=== PATIENT | male | born 1965 | race Caucasian/White ===

== ENCOUNTER 2021-08-11 09:45 | Outpatient (RCR) | payer OTHER, SELFPAY ==
[2021-08-04 10:13] VITALS: BP 173/80; PULSE 76; TEMP 36.4
--- NOTE | 2021-08-04 11:40 | PCM.WC.PN ---
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 States he gets on and off cellulitis of bilateral lower ankle area every 5 to 6 months and have to go on antibiotics. States he has never had an open like this before this is the worst. Denies trauma, states he sits a lot on his job. History of osteoarthritis and takes a lot of medications for that [id number] and meloxicam. His family doctor has been using Bactroban external ointment on the area to keep it clean. States he did cultures in the past and patient has been on clindamycin and also levofloxacin currently he finished those in June and has not been on anything since then. Progress of Wound: The right posterior ankle is open with tendon visible very dry has some bruising around red blood into his skin tender to palpate the area has some pedal edema and tenderness. No cellulitis noted no odor. Subjective Subjective Patient states it bothers him but he is not having excruciating pain over it able to walk on. Objective Data Objective Data As above, will start with Aquacel extra to wound base moistened with Adaptic over top gauze dressing double layer Tubigrip to lower leg cultures were obtained. Vital Signs: Vital Signs Temp Pulse BP 97.6 F L 76 173/80 H 08/04/21 10:13 08/04/21 10:13 08/04/21 10:13 Physical Exam Const alert and oriented x3 General Appearance: cooperative Nutritional Appearance: obese HEENT normocephalic Face and Sinus: normal facial exam Eyes PERRL General Eye: normal appearance of both eyes Neck full ROM Resp normal respiratory effort Effort and Inspection: able to speak in complete sentences Cardio regular rate and regular rhythm GI Auscultation: normoactive bowel sounds Palpation: soft and no hepatosplenomegaly Back/Spine Cervical Spine: cervical ROM normal Extremity General Extremity: edema; Negative for normal exam except as noted Skin Wounds: wounds noted Wound Narrative: Right posterior ankle open wound with a tendon visible Psych mental status grossly normal Appearance: grossly normal Activity / Motor Behavior: appropriate eye contact Speech: normal speech Mood & Affect: euthymic mood Debridement Note Debridement Note Wound debrided: Right posterior ankle Laterality: Right Type of Debridement: Excisional debridement Anesthesia Used: 5% Lidocaine Gel Depth: Down to and including healthy tissue Percentage of wound debrided: 100 Instrument Used: 7mm curette Tissue Removed: Fibrin devitalized tissue Amount of bleeding with debridement: Mild Bleeding Controlled with: Compression and gauze Patient tolerated procedure: Patient tolerated procedure well Post-Debridement Measurements and Additional Note: Post-Debridement Measurements/Treatment - Nurse 1 - General Ulcer Assessment Start: 08/04/21 10:13 Freq: Status: Active Protocol: MANSOOR Activity Type Activity Date Activity User E-Sign Co-Sign Detail Recorded Client Recorded Date Recorded By Document 08/04/21 10:13 TARIQ [id number] 08/04/21 10:26 TARIQ 08/04/21 10:13 TARIQ - Today's Visit Information Type of service Initial Visit Arrival Mode Ambulatory Patient Identification Verified (Name & Yes ) Vital Signs Temperature (97.8 F-99.1 F) 97.6 F L Temperature Source Temporal Pulse Rate (60-100) 76 Pulse Location Monitor Blood Pressure (90/60-120/80) 173/80 H Blood Pressure Mean (mm Hg) 111 Source Monitor Position Sitting Blood Pressure Location Right Arm History Since Last Visit- (Skip if this is Patient's initial visit) Have you changed medications since your No last visit? Any new allergies or adverse reactions No Had a fall/change in ADL's that may No increase risk of falls Signs or symptoms of abuse and/or No neglect since last visit Have you been in the hospital since your No last visit? Has dressing in place as prescribed No Has compression in place as prescribed N/A Has offloadiing in place as prescribed N/A Experienced any changes in pain level or No management Left Footwear Regular Shoe Right Footwear Regular Shoe Pain Scale: 0-10 Numeric Is Patient Pain Free? Yes - Nurse 1 - General Ulcer Measurement Start: 08/04/21 10:13 Freq: Status: Active Protocol: Activity Type Activity Date Activity User E-Sign Co-Sign Detail Recorded Client Recorded Date Recorded By Document 08/04/21 10:13 TARIQ [id number] 08/04/21 10:26 NM 08/04/21 10:13 Wound Center Nurse 1 #1 Right Achilles -Current Size (cm) - Length 3 -Current Size (cm) - Width 3.2 -Current Size (cm) - Depth 0.2 -Total Square Cm 9.6 -Exudate Amt Small -Exudate Type Serosanguineous -Wound Margin Distinct, Outline Attached -Granulation Amt Medium (34-66%) -Granulation Quality Red -Necrosis Amt Medium (34-66%) -Necrotic Tissue Type Adherent Slough -Structure Exposed Tendon -Texture (Johanna-wound Skin Appearance) Assessed, Scarring -Moisture (Johanna-wound Skin Appearance) Assessed, Maceration -Color (Johanna-wound Skin Appearance) No Abnormality, Assessed -Temperature (Johanna-wound Skin No Abnormality Appearance) (Pt Warm) -Tenderness on Palpation (Johanna-wound No Skin Appearance) -Ulcer Cleansing Soap and Water -Foul Odor after Cleansing No -Anesthetic Used 5% Lidocaine Gel Right Calf (cm) 50 Right Ankle (cm) 26 WC - Nurse 2 - General Ulcer CM Notes Start: 08/04/21 10:13 Freq: Status: Active Protocol: Activity Type Activity Date Activity User E-Sign Co-Sign Detail Recorded Client Recorded Date Recorded By Document 08/04/21 10:45 MW [id number] 08/04/21 10:50 MW 08/04/21 10:45 Wound Center Nurse 2 #1 Right Achilles -Time 10:45 -Correct Patient Yes -Correct Side, Site, Position Yes -Correct Procedure Yes -Procedure Performed Yes -Type of Procedure Debridement -Clinical Debridement Subcutaneous -Tissue Removed Subcutaneous -Post Debridement (cm) - Length 3.5 -Post Debridement (cm) - Width 3.5 -Post Debridement (cm) - Depth 0.1 -Total Square (Post) (cm) 12.25 -Area of Debridement (cm) - Length 3.5 -Area of Debridement (cm) - Width 3.5 -Total Square (Area) (cm) 12.25 -Tunneling No -Undermining/Tunneling No -Circular Undermining No -Wound/Ulcer Outcome Not Healed -Ulcer Cleansing Rinsed/ Irrigated with Saline -Foul Odor after Cleansing No -Bioengineered Tissue No -Bleeding Controlled with Pressure -Offloading No -Treatment Response Procedure Tolerated Well -Debridement - Subq, 1st 20sq cm Yes Pain Scale: 0-10 Numeric Is Patient Pain Free? Yes WC - Nurse 3 - General Ulcer D/C NN Start: 08/04/21 10:13 Freq: Status: Active Protocol: Activity Type Activity Date Activity User E-Sign Co-Sign Detail Recorded Client Recorded Date Recorded By Document 08/04/21 10:56 NICHOLAS [id number] 08/04/21 10:57 NICHOLAS 08/04/21 10:56 Wound Care Nurse 3 #1 Right Achilles -Ulcer Cleansing Rinsed/ Irrigated with Saline -Primary Dressing Applied Aquacel Extra -Primary Dressing Covered/Secured with Dry Gauze, Secured with Tape -Aquacel Extra 1 Right -Tubular Bandage Double Layer -Size of Tubigrip Used Size F -Size F ($) 2 Pain Scale: 0-10 Numeric Is Patient Pain Free? Yes WC - Visit Discharge Discharge Condition Stable Ambulatory Status Ambulatory Transportation Private Auto Accompanied by self Assessment/Plan Assessment/Plan (1) Edema, lower extremity: CODE(S): R60.0 - Localized edema PLAN: Double layer Tubigrip (2) Nonhealing nonsurgical wound: CODE(S): T14.8XXA - Other injury of unspecified body region, initial encounter PLAN: Wash whole leg with antibacterial soap and apply Aquacel extra to wound base cover with Adaptic gauze Allison daily Follow-up in 1 week (3) Obesity: CODE(S): E66.9 - Obesity, unspecified QUALIFIERS: Obesity type: due to excess calories Obesity classification: adult class 3 (BMI >= 40) Serious obesity comorbidity presence: with serious comorbidity Body mass index: BMI 50.0-59.9 Qualified Code(s): E66.01 - Morbid (severe) obesity due to excess calories; Z68.43 - Body mass index [BMI] 50.0-59.9, adult PLAN: Continue to eat a low-carb diet and high-protein diet and exercise
[2021-08-11 09:56] VITALS: BP 151/77; PULSE 85; TEMP 36.2
--- NOTE | 2021-08-11 11:02 | PN.PCM_ITS ---
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 States he gets on and off cellulitis of bilateral lower ankle area every 5 to 6 months and have to go on antibiotics. States he has never had an open like this before this is the worst. Denies trauma, states he sits a lot on his job. History of osteoarthritis and takes a lot of medications for that [id number] and meloxicam. His family doctor has been using Bactroban external ointment on the area to keep it clean. States he did cultures in the past and patient has been on clindamycin and also levofloxacin currently he finished those in June and has not been on anything since then. Progress of Wound: The right posterior ankle is open with tendon visible beefy base no sign of infection did have positive cultures. Started on Levaquin yesterday. Did run out of his product will give him enough for 1 more week and follow-up weekly. We will try to apply for skin subs which would cover the tendon better and heal faster. We will try to get lab work on him. Subjective Subjective Patient happy with outcome so far Objective Data Objective Data Right lower ankle open wound with tendon exposed beefy's skin developing starting to cover the tendon looks good patient happy with outcome we will apply for skin substitute Vital Signs: Vital Signs Temp Pulse BP 97.1 F L 85 151/77 H 08/11/21 09:56 08/11/21 09:56 08/11/21 09:56 Lab / Micro Data Micro: Microbiology 08/04/21 10:45 Wound Abcess - Right Foot Gram Stain - Final 08/04/21 10:45 Wound Abcess - Right Foot Wound Culture - Final Turicella otitidis Staphylococcus epidermidis Staphylococcus haemolyticus 08/04/21 10:45 Wound Abcess - Right Foot Anaerobic Culture - Final No anaerobic bacteria isolated. Physical Exam Const alert and oriented x3 General Appearance: cooperative Nutritional Appearance: obese HEENT normocephalic Face and Sinus: normal facial exam Eyes PERRL General Eye: normal appearance of both eyes Neck full ROM Resp normal respiratory effort Effort and Inspection: able to speak in complete sentences Cardio regular rate and regular rhythm GI Auscultation: normoactive bowel sounds Palpation: soft and no hepatosplenomegaly Back/Spine Cervical Spine: cervical ROM normal Extremity General Extremity: edema; Negative for normal exam except as noted Skin Wounds: wounds noted Wound Narrative: Right posterior ankle open wound with a tendon visible Psych mental status grossly normal Appearance: grossly normal Activity / Motor Behavior: appropriate eye contact Speech: normal speech Mood & Affect: euthymic mood Debridement Note Debridement Note Wound debrided: Right upper ankle Type of Debridement: Excisional debridement Anesthesia Used: 5% Lidocaine Gel Depth: Down to and including healthy tissue and in the subcutaneous layer (Tendon exposed) Percentage of wound debrided: 100 Instrument Used: 5mm curette Tissue Removed: Fibrin Severity: Fat Layer Exposed Amount of bleeding with debridement: None Bleeding Controlled with: Compression and gauze Patient tolerated procedure: Patient tolerated procedure well Post-Debridement Measurements and Additional Note: Post-Debridement Measurements/Treatment - Nurse 1 - General Ulcer Assessment Start: 08/04/21 10:13 Freq: Status: Active Protocol: TARIQ.ALBIN Activity Type Activity Date Activity User E-Sign Co-Sign Detail Recorded Client Recorded Date Recorded By Document 08/04/21 10:13 AK [id number] 08/04/21 10:26 AK Document 08/11/21 09:56 KR [id number] 08/11/21 10:01 KR 08/04/21 08/11/21 10:13 09:56 - Today's Visit Information Type of service Initial Visit Follow-up Visit (Physician/[facility] ) Arrival Mode Ambulatory Ambulatory Patient Identification Verified (Name & Yes Yes ) Vital Signs Temperature (97.8 F-99.1 F) 97.6 F L 97.1 F L Temperature Source Temporal Temporal Pulse Rate (60-100) 76 85 Pulse Location Monitor Monitor Blood Pressure (90/60-120/80) 173/80 H 151/77 H Blood Pressure Mean (mm Hg) 111 101 Source Monitor Monitor Position Sitting Sitting Blood Pressure Location Right Arm Left Arm History Since Last Visit- (Skip if this is Patient's initial visit) Have you changed medications since your No No last visit? Any new allergies or adverse reactions No No Had a fall/change in ADL's that may No No increase risk of falls Signs or symptoms of abuse and/or No No neglect since last visit Have you been in the hospital since your No No last visit? Has dressing in place as prescribed No Yes Has compression in place as prescribed N/A Yes Has offloadiing in place as prescribed N/A N/A Experienced any changes in pain level or No No management Left Footwear Regular Shoe Regular Shoe Right Footwear Regular Shoe Regular Shoe Pain Scale: 0-10 Numeric Is Patient Pain Free? Yes Yes WC - Nurse 1 - General Ulcer Measurement Start: 08/04/21 10:13 Freq: Status: Active Protocol: Activity Type Activity Date Activity User E-Sign Co-Sign Detail Recorded Client Recorded Date Recorded By Document 08/04/21 10:13 AK [id number] 08/04/21 10:26 AK Document 08/11/21 09:56 KR [id number] 08/11/21 10:01 KR 08/04/21 08/11/21 10:13 09:56 Wound Center Nurse 1 #1 Right Achilles -Combined with other wound No -Current Size (cm) - Length 3 3.6 -Current Size (cm) - Width 3.2 3.5 -Current Size (cm) - Depth 0.2 0.3 -Total Square Cm 9.6 12.60 -Photo Taken No -Tunneling No -Undermining/Tunneling No -Circular Undermining No -Change in Wound Grade/Stage No -Exudate Amt Small Large -Exudate Type Serosanguineous Serosanguineous -Wound Margin Distinct, Distinct, Outline Outline Attached Attached -Granulation Amt Medium (34-66%) Medium (34-66%) -Granulation Quality Red Red -Slough/Fibrin Yes -Necrosis Amt Medium (34-66%) Medium (34-66%) -Necrotic Tissue Type Adherent Slough Adherent Slough -Structure Exposed Tendon Tendon,Fat Layer Exposed -Texture (Johanna-wound Skin Appearance) Assessed, Assessed, Scarring Scarring -Moisture (Johanna-wound Skin Appearance) Assessed, Assessed, Maceration Maceration -Color (Johanna-wound Skin Appearance) No Abnormality, No Abnormality, Assessed Assessed -Temperature (Johanna-wound Skin No Abnormality No Abnormality Appearance) (Pt Warm) (Pt Warm) -Tenderness on Palpation (Johanna-wound No No Skin Appearance) -Ulcer Cleansing Soap and Water Rinsed/ Irrigated with Saline -Foul Odor after Cleansing No No -Anesthetic Used 5% Lidocaine 5% Lidocaine Gel Gel Right Calf (cm) 50 49.5 Right Ankle (cm) 26 27.4 WC - Nurse 2 - General Ulcer CM Notes Start: 08/04/21 10:13 Freq: Status: Active Protocol: Activity Type Activity Date Activity User E-Sign Co-Sign Detail Recorded Client Recorded Date Recorded By Document 08/04/21 10:45 MW [id number] 08/04/21 10:50 MW Document 08/11/21 10:12 MW [id number] 08/11/21 10:17 MW 08/04/21 08/11/21 10:45 10:12 Wound Center Nurse 2 #1 Right Achilles -Time 10:45 10:12 -Correct Patient Yes Yes -Correct Side, Site, Position Yes Yes -Correct Procedure Yes Yes -Procedure Performed Yes Yes -Type of Procedure Debridement Debridement -Clinical Debridement Subcutaneous Subcutaneous -Tissue Removed Subcutaneous Subcutaneous -Post Debridement (cm) - Length 3.5 3.8 -Post Debridement (cm) - Width 3.5 3.8 -Post Debridement (cm) - Depth 0.1 0.2 -Total Square (Post) (cm) 12.25 14.44 -Area of Debridement (cm) - Length 3.5 3.8 -Area of Debridement (cm) - Width 3.5 3.8 -Total Square (Area) (cm) 12.25 14.44 -Tunneling No No -Undermining/Tunneling No No -Circular Undermining No No -Wound/Ulcer Outcome Not Healed Not Healed -Ulcer Cleansing Rinsed/ Rinsed/ Irrigated with Irrigated with Saline Saline -Foul Odor after Cleansing No No -Bioengineered Tissue No No -Bleeding Controlled with Pressure Pressure -Offloading No No -Treatment Response Procedure Procedure Tolerated Well Tolerated Well -Debridement - Subq, 1st 20sq cm Yes Yes Pain Scale: 0-10 Numeric Is Patient Pain Free? Yes Yes - Nurse 3 - General Ulcer D/C NN Start: 08/04/21 10:13 Freq: Status: Active Protocol: Activity Type Activity Date Activity User E-Sign Co-Sign Detail Recorded Client Recorded Date Recorded By Document 08/04/21 10:56 KR [id number] 08/04/21 10:57 KR 08/04/21 10:56 Wound Care Nurse 3 #1 Right Achilles -Ulcer Cleansing Rinsed/ Irrigated with Saline -Primary Dressing Applied Aquacel Extra -Primary Dressing Covered/Secured with Dry Gauze, Secured with Tape -Aquacel Extra 1 Right -Tubular Bandage Double Layer -Size of Tubigrip Used Size F -Size F ($) 2 Pain Scale: 0-10 Numeric Is Patient Pain Free? 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: CODE(S): L97.302 - Non-pressure chronic ulcer of unspecified ankle with fat layer exposed PLAN: Wash right leg with antibacterial soap apply Aquacel extra to wound base cover with Adaptic gauze and Allison double layer Tubigrip Patient started on Levaquin 500 mg 1 a day for his bacteria growing Follow-up 1 week (2) Obesity: CODE(S): E66.9 - Obesity, unspecified QUALIFIERS: Obesity type: due to excess calories Obesity classification: adult class 3 (BMI >= 40) Serious obesity comorbidity presence: with serious comorbidity Body mass index: BMI 50.0-59.9 Qualified Code(s): E66.01 - Morbid (severe) obesity due to excess calories; Z68.43 - Body mass index [BMI] 50.0-59.9, adult PLAN: We will check labs for diabetes (3) Edema, lower extremity: CODE(S): R60.0 - Localized edema (4) Nonhealing nonsurgical wound: CODE(S): T14.8XXA - Other injury of unspecified body region, initial encounter
== END 2021-08-12 23:59 ==
LOC: WC 09:45
PROVIDERS: PCP Family Medicine; Visit Provider Nurse Practitioner
DX: L97.312 Non-pressure chronic ulcer of right ankle with fat layer exposed (principal); R60.0 Localized edema; M19.90 Unspecified osteoarthritis, unspecified site; E66.01 Morbid (severe) obesity due to excess calories; Z68.43 Body mass index [BMI] 50.0-59.9, adult; Z79.1 Long term (current) use of non-steroidal anti-inflammatories (NSAID)
CPT/HCPCS: 11042; 87070; 87075; 87077; 87186; 87205; 99203; G0463

== ENCOUNTER 2021-09-08 10:15 | Outpatient (RCR) | payer OTHER, SELFPAY ==
[2021-08-13 00:37] VITALS: BP 151/77; PULSE 85; TEMP 36.2
[2021-08-18 10:24] VITALS: BP 153/91; PULSE 73; TEMP 36.1
--- NOTE | 2021-08-18 11:24 | PN.PCM_ITS ---
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 States he gets on and off cellulitis of bilateral lower ankle area every 5 to 6 months and have to go on antibiotics. States he has never had an open like this before this is the worst. Denies trauma, states he sits a lot on his job. History of osteoarthritis and takes a lot of medications for that [id number] and meloxicam. His family doctor has been using Bactroban external ointment on the area to keep it clean. States he did cultures in the past and patient has been on clindamycin and also levofloxacin currently he finished those in June and has not been on anything since then. Progress of Wound: Right posterior ankle still open tendons are almost covered getting islands of new skin developing Subjective Subjective Patient is pleased with his improvement Objective Data Objective Data No sign of infection there is areas of new cell buds growing over the tendon growth The area is becoming smaller Vital Signs: Vital Signs Temp Pulse BP 96.9 F L 73 153/91 H 08/18/21 10:24 08/18/21 10:24 08/18/21 10:24 Lab / Micro Data Result Diagrams: 08/18/21 11:04 Physical Exam Const alert and oriented x3 General Appearance: cooperative Nutritional Appearance: obese HEENT normocephalic Face and Sinus: normal facial exam Eyes PERRL General Eye: normal appearance of both eyes Neck full ROM Resp normal respiratory effort Effort and Inspection: able to speak in complete sentences Cardio regular rate and regular rhythm GI Auscultation: normoactive bowel sounds Palpation: soft and no hepatosplenomegaly Back/Spine Cervical Spine: cervical ROM normal Extremity General Extremity: edema; Negative for normal exam except as noted Skin Wounds: wounds noted Wound Narrative: Right posterior ankle open wound with a tendon visible Psych mental status grossly normal Appearance: grossly normal Activity / Motor Behavior: appropriate eye contact Speech: normal speech Mood & Affect: euthymic mood Debridement Note Debridement Note Wound debrided: Right posterior ankle Type of Debridement: Excisional debridement Anesthesia Used: 5% Lidocaine Gel Depth: Down to and including healthy tissue Percentage of wound debrided: 100 Instrument Used: 5mm curette Tissue Removed: Fibrin Severity: Limited To Skin Breakdown Amount of bleeding with debridement: Mild Bleeding Controlled with: Pressure Patient tolerated procedure: Patient tolerated procedure well Post-Debridement Measurements and Additional Note: Post-Debridement Measurements/Treatment - Nurse 1 - General Ulcer Assessment Start: 08/18/21 10:23 Freq: Status: Active Protocol: [facility] Activity Type Activity Date Activity User E-Sign Co-Sign Detail Recorded Client Recorded Date Recorded By Document 08/18/21 10:24 TARIQ [id number] 08/18/21 10:31 TARIQ 08/18/21 10:24 WC - Today's Visit Information Type of service Follow-up Visit (Physician/DIRECTOR INSTRUCTIONAL [employer]ERIAL ) Arrival Mode Ambulatory Patient Identification Verified (Name & Yes ) Patient Requires Transmission-Based No Precautions Safety Precautions NA Vital Signs Temperature (97.8 F-99.1 F) 96.9 F L Temperature Source Oral Pulse Rate (60-100) 73 Pulse Location Monitor Blood Pressure (90/60-120/80) 153/91 H Blood Pressure Mean (mm Hg) 111 Source Monitor History Since Last Visit- (Skip if this is Patient's initial visit) Have you changed medications since your No last visit? Any new allergies or adverse reactions No Had a fall/change in ADL's that may No increase risk of falls Signs or symptoms of abuse and/or No neglect since last visit Have you been in the hospital since your No last visit? Has dressing in place as prescribed Yes Has compression in place as prescribed Yes Has offloadiing in place as prescribed N/A Experienced any changes in pain level or No management Left Footwear Regular Shoe Right Footwear Regular Shoe TARIQ - Nurse 1 - General Ulcer Measurement Start: 08/18/21 10:23 Freq: Status: Active Protocol: Activity Type Activity Date Activity User E-Sign Co-Sign Detail Recorded Client Recorded Date Recorded By Document 08/18/21 10:24 TARIQ [id number] 08/18/21 10:31 TARIQ 08/18/21 10:24 Wound Center Nurse 1 #1 Right Achilles -Combined with other wound No -Current Size (cm) - Length 3.8 -Current Size (cm) - Width 3.4 -Current Size (cm) - Depth 0.2 -Total Square Cm 12.92 -Photo Taken No -Epithelialization None Present -Tunneling No -Undermining/Tunneling No -Circular Undermining No -Change in Wound Grade/Stage No -Exudate Amt Medium -Exudate Type Serosanguineous -Wound Margin Distinct, Outline Attached -Granulation Amt Large (67-100%) -Granulation Quality [place],Red -Slough/Fibrin No -Necrosis Amt Medium (34-66%) -Necrotic Tissue Type Adherent Slough -Structure Exposed N/A -Texture (Johanna-wound Skin Appearance) No Abnormality, Assessed -Moisture (Johanna-wound Skin Appearance) No Abnormality, Assessed -Color (Johanna-wound Skin Appearance) No Abnormality, Assessed -Temperature (Johanna-wound Skin No Abnormality Appearance) (Pt Warm) -Tenderness on Palpation (Johanna-wound No Skin Appearance) -Ulcer Cleansing Rinsed/ Irrigated with Saline -Foul Odor after Cleansing No -Anesthetic Used 5% Lidocaine Gel Lower Limb Edema Present No Right Calf (cm) 46.2 Right Ankle (cm) 25.5 WC - Nurse 2 - General Ulcer CM Notes Start: 08/18/21 10:23 Freq: Status: Active Protocol: Activity Type Activity Date Activity User E-Sign Co-Sign Detail Recorded Client Recorded Date Recorded By Document 08/18/21 10:36 MW [id number] 08/18/21 10:37 MW 08/18/21 10:36 Wound Center Nurse 2 #1 Right Achilles -Time 10:36 -Correct Patient Yes -Correct Side, Site, Position Yes -Correct Procedure Yes -Procedure Performed Yes -Type of Procedure Debridement -Clinical Debridement Subcutaneous -Tissue Removed Subcutaneous -Post Debridement (cm) - Length 4.0 -Post Debridement (cm) - Width 3.2 -Post Debridement (cm) - Depth 0.2 -Total Square (Post) (cm) 12.80 -Area of Debridement (cm) - Length 4.0 -Area of Debridement (cm) - Width 3.2 -Total Square (Area) (cm) 12.80 -Tunneling No -Undermining/Tunneling No -Circular Undermining No -Wound/Ulcer Outcome Not Healed -Ulcer Cleansing Rinsed/ Irrigated with Saline -Foul Odor after Cleansing No -Bioengineered Tissue No -Bleeding Controlled with Pressure -Offloading No -Treatment Response Procedure Tolerated Well -Debridement - Subq, 1st 20sq cm Yes Pain Scale: 0-10 Numeric Is Patient Pain Free? Yes WC - Nurse 3 - General Ulcer D/C NN Start: 08/18/21 10:23 Freq: Status: Active Protocol: Activity Type Activity Date Activity User E-Sign Co-Sign Detail Recorded Client Recorded Date Recorded By Document 08/18/21 10:48 TARIQ [id number] 08/18/21 10:49 TARIQ 08/18/21 10:48 Wound Care Nurse 3 #1 Right Achilles -Ulcer Cleansing Rinsed/ Irrigated with Saline -Foul Odor after Cleansing No -Negative Pressure Wound Therapy N/A -Primary Dressing Applied Fibracol Plus 4x4 -Primary Dressing Covered/Secured with Dry Gauze, Secured with Tape -Fibracol Plus 4x4 2 WC - Visit Discharge Discharge Condition Stable Ambulatory Status Ambulatory Transportation Private Auto Medication Reconcilliation completed & No provided to patient/care provider Clinical Summary of Care Provided Yes Assessment/Plan Assessment/Plan (1) 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 Apply Fibracol to wound base moistened cover with Adaptic gauze and dressing every day We will apply for skin substitute to cover tendon (2) Obesity: CODE(S): E66.9 - Obesity, unspecified QUALIFIERS: Obesity type: due to excess calories Obesity classification: adult class 3 (BMI >= 40) Serious obesity comorbidity presence: with serious comorbidity Body mass index: BMI 50.0-59.9 Qualified Code(s): E66.01 - Morbid (severe) obesity due to excess calories; Z68.43 - Body mass index [BMI] 50.0-59.9, adult (3) Edema, lower extremity: CODE(S): R60.0 - Localized edema PLAN: Continue wearing double layer Tubigrip to the area (4) Nonhealing nonsurgical wound: CODE(S): T14.8XXA - Other injury of unspecified body region, initial encounter
[2021-08-18 12:02] LABS: Absolute Lymphocyte Count 2.34 X10^3/uL (0.83-4.51); Absolute Neutrophil Count 3.4 X10^3/uL (2.0-7.7); Basophil# 0.06 X10^3/uL; Basophil% 0.9 % (0-1); Eosinophil# 0.12 X10^3/uL; Eosinophils% 1.8 % (0-5); Hematocrit 43.6 % (40-54); Hemoglobin 14.4 g/dL (13.0-16.5); Lymphocyte # 2.34 X10^3/ul (0.83-4.51); Lymphocyte % 35.1 % (19-41); Mean Corpuscular Hgb 29.4 pg (27.0-32.0); Monocyte# 0.74 X10^3/uL; Monocyte% 11.1 % (0-10); NRBC Flagged by Analyzer 0 % (0-5); Neutrophil # 3.38 X10^3/uL (2.7-7.7); Neutrophil % 50.7 % (47-70); Platelet Count 264 K/mm3 (150-450); RBC Distribution Width CV 12.9 % (11.6-14.6); RBC Distribution Width SD 42.2 fl (35.1-43.9); White Blood Count 6.7 K/mm3 (4.4-11.0)
[2021-08-18 12:27] LABS: Hemoglobin A1c 5.5 % (3.8-5.6)
[2021-08-18 12:38] LABS: Prealbumin 22.9 mg/dL (20.0-40.0)
[2021-08-25 10:36] VITALS: BP 148/68; PULSE 82; TEMP 36
--- NOTE | 2021-08-25 11:20 | PCM.WC.PN ---
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 States he gets on and off cellulitis of bilateral lower ankle area every 5 to 6 months and have to go on antibiotics. States he has never had an open like this before this is the worst. Denies trauma, states he sits a lot on his job. History of osteoarthritis and takes a lot of medications for that [id number] and meloxicam. His family doctor has been using Bactroban external ointment on the area to keep it clean. States he did cultures in the past and patient has been on clindamycin and also levofloxacin currently he finished those in June and has not been on anything since then. Progress of Wound: Right posterior ankle still open tendons are almost covered getting islands of new skin developing. Continues to improve. The hemoglobin A1c was within normal limits and his prealbumin was within normal limits. Patient does not skin sub. We will continue using Fibracol that we used for the last week seems to be working really well and he will follow up in a couple weeks Subjective Subjective Patient is happy with closure Objective Data Objective Data Wound continues to fill in nicely with new skin cells and covering the tendons well very little bit showing. Patient tolerating dressing changes well. No sign of infection or odor Vital Signs: Vital Signs Temp Pulse BP 96.8 F L 82 148/68 H 08/25/21 10:36 08/25/21 10:36 08/25/21 10:36 Lab / Micro Data Attestation: I reviewed the patient's lab results. Result Diagrams: 08/18/21 11:04 Physical Exam Const alert and oriented x3 General Appearance: cooperative Nutritional Appearance: obese HEENT normocephalic Face and Sinus: normal facial exam Eyes PERRL General Eye: normal appearance of both eyes Neck full ROM Resp normal respiratory effort Effort and Inspection: able to speak in complete sentences Cardio regular rate and regular rhythm GI Auscultation: normoactive bowel sounds Palpation: soft and no hepatosplenomegaly Back/Spine Cervical Spine: cervical ROM normal Extremity General Extremity: edema; Negative for normal exam except as noted Skin Wounds: wounds noted Wound Narrative: Right posterior ankle open wound with a tendon visible Psych mental status grossly normal Appearance: grossly normal Activity / Motor Behavior: appropriate eye contact Speech: normal speech Mood & Affect: euthymic mood Debridement Note Debridement Note Wound debrided: Right posterior ankle Type of Debridement: Excisional debridement Anesthesia Used: 5% Lidocaine Gel Depth: Down to and including healthy tissue and in the subcutaneous layer Percentage of wound debrided: 100 Instrument Used: 5mm curette Tissue Removed: Fibrin and some devitalized tissue Severity: Fat Layer Exposed Amount of bleeding with debridement: Mild Bleeding Controlled with: Pressure Patient tolerated procedure: Patient tolerated procedure well Post-Debridement Measurements and Additional Note: Post-Debridement Measurements/Treatment - Nurse 1 - General Ulcer Assessment Start: 08/18/21 10:23 Freq: Status: Active Protocol: [employer] Activity Type Activity Date Activity User E-Sign Co-Sign Detail Recorded Client Recorded Date Recorded By Document 08/18/21 10:24 AK [id number] 08/18/21 10:31 AK Document 08/25/21 10:36 NICHOLAS [id number] 08/25/21 10:39 NICHOLAS 08/18/21 08/25/21 10:24 10:36 - Today's Visit Information Type of service Follow-up Visit Follow-up Visit (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/LINING SEWER (Physician/LINING SEWER ) ) Arrival Mode Ambulatory Ambulatory Patient Identification Verified (Name & Yes Yes ) Patient Requires Transmission-Based No Precautions Safety Precautions NA Vital Signs Temperature (97.8 F-99.1 F) 96.9 F L 96.8 F L Temperature Source Oral Temporal Pulse Rate (60-100) 73 82 Pulse Location Monitor Monitor Blood Pressure (90/60-120/80) 153/91 H 148/68 H Blood Pressure Mean (mm Hg) 111 94 Source Monitor Monitor Position Sitting Blood Pressure Location Left Arm History Since Last Visit- (Skip if this is Patient's initial visit) Have you changed medications since your No No last visit? Any new allergies or adverse reactions No No Had a fall/change in ADL's that may No increase risk of falls Signs or symptoms of abuse and/or No No neglect since last visit Have you been in the hospital since your No No last visit? Has dressing in place as prescribed Yes Yes Has compression in place as prescribed Yes Yes Has offloadiing in place as prescribed N/A N/A Experienced any changes in pain level or No No management Left Footwear Regular Shoe Regular Shoe Right Footwear Regular Shoe Regular Shoe Pain Scale: 0-10 Numeric Is Patient Pain Free? Yes WC - Nurse 1 - General Ulcer Measurement Start: 08/18/21 10:23 Freq: Status: Active Protocol: Activity Type Activity Date Activity User E-Sign Co-Sign Detail Recorded Client Recorded Date Recorded By Document 08/18/21 10:24 AK [id number] 08/18/21 10:31 AK Document 08/25/21 10:36 KR [id number] 08/25/21 10:39 KR 08/18/21 08/25/21 10:24 10:36 Wound Center Nurse 1 #1 Right Achilles -Combined with other wound No -Current Size (cm) - Length 3.8 3.5 -Current Size (cm) - Width 3.4 3.5 -Current Size (cm) - Depth 0.2 0.2 -Total Square Cm 12.92 12.25 -Photo Taken No -Epithelialization None Present -Tunneling No -Undermining/Tunneling No -Circular Undermining No -Change in Wound Grade/Stage No -Exudate Amt Medium Medium -Exudate Type Serosanguineous Serosanguineous -Wound Margin Distinct, Distinct, Outline Outline Attached Attached -Granulation Amt Large (67-100%) Large (67-100%) -Granulation Quality [place],Red Hyper- granulation -Slough/Fibrin No -Necrosis Amt Medium (34-66%) Large (67-100%) -Necrotic Tissue Type Adherent Slough Adherent Slough -Structure Exposed N/A -Texture (Johanna-wound Skin Appearance) No Abnormality, Assessed, Assessed Scarring -Moisture (Johanna-wound Skin Appearance) No Abnormality, No Abnormality, Assessed Assessed -Color (Johanna-wound Skin Appearance) No Abnormality, No Abnormality, Assessed Assessed -Temperature (Johanna-wound Skin No Abnormality No Abnormality Appearance) (Pt Warm) (Pt Warm) -Tenderness on Palpation (Johanna-wound No No Skin Appearance) -Ulcer Cleansing Rinsed/ Rinsed/ Irrigated with Irrigated with Saline Saline -Foul Odor after Cleansing No No -Anesthetic Used 5% Lidocaine 4% Lidocaine Gel Solution Lower Limb Edema Present No Right Calf (cm) 46.2 Right Ankle (cm) 25.5 WC - Nurse 2 - General Ulcer CM Notes Start: 08/18/21 10:23 Freq: Status: Active Protocol: Activity Type Activity Date Activity User E-Sign Co-Sign Detail Recorded Client Recorded Date Recorded By Document 08/18/21 10:36 MW [id number] 08/18/21 10:37 MW Document 08/25/21 10:43 MW [id number] 08/25/21 10:45 MW 08/18/21 08/25/21 10:36 10:43 Wound Center Nurse 2 #1 Right Achilles -Time 10:36 10:44 -Correct Patient Yes Yes -Correct Side, Site, Position Yes Yes -Correct Procedure Yes Yes -Procedure Performed Yes Yes -Type of Procedure Debridement Debridement -Clinical Debridement Subcutaneous Subcutaneous -Tissue Removed Subcutaneous Subcutaneous -Post Debridement (cm) - Length 4.0 4.0 -Post Debridement (cm) - Width 3.2 3.5 -Post Debridement (cm) - Depth 0.2 0.2 -Total Square (Post) (cm) 12.80 14.00 -Area of Debridement (cm) - Length 4.0 4.0 -Area of Debridement (cm) - Width 3.2 3.5 -Total Square (Area) (cm) 12.80 14.00 -Tunneling No No -Undermining/Tunneling No No -Circular Undermining No No -Wound/Ulcer Outcome Not Healed Not Healed -Ulcer Cleansing Rinsed/ Rinsed/ Irrigated with Irrigated with Saline Saline -Foul Odor after Cleansing No No -Bioengineered Tissue No No -Bleeding Controlled with Pressure Pressure -Offloading No No -Treatment Response Procedure Procedure Tolerated Well Tolerated Well -Debridement - Subq, 1st 20sq cm Yes Yes Pain Scale: 0-10 Numeric Is Patient Pain Free? Yes WC - Nurse 3 - General Ulcer D/C NN Start: 08/18/21 10:23 Freq: Status: Active Protocol: Activity Type Activity Date Activity User E-Sign Co-Sign Detail Recorded Client Recorded Date Recorded By Document 08/18/21 10:48 AK [id number] 08/18/21 10:49 AK 08/18/21 10:48 Wound Care Nurse 3 -Ulcer Cleansing Rinsed/ Irrigated with Saline -Foul Odor after Cleansing No -Negative Pressure Wound Therapy N/A -Primary Dressing Applied Fibracol Plus 4x4 -Primary Dressing Covered/Secured with Dry Gauze, Secured with Tape -Fibracol Plus 4x4 2 WC - Visit Discharge Discharge Condition Stable Ambulatory Status Ambulatory Transportation Private Auto Medication Reconcilliation completed & No provided to patient/care provider Clinical Summary of Care Provided Yes Assessment/Plan Assessment/Plan (1) 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 Apply Fibracol to wound base moistened cover with Adaptic gauze and dressing every day We will apply for skin substitute to cover tendon follow-up 2 weeks (2) Obesity: CODE(S): E66.9 - Obesity, unspecified QUALIFIERS: Obesity type: due to excess calories Obesity classification: adult class 3 (BMI >= 40) Serious obesity comorbidity presence: with serious comorbidity Body mass index: BMI 50.0-59.9 Qualified Code(s): E66.01 - Morbid (severe) obesity due to excess calories; Z68.43 - Body mass index [BMI] 50.0-59.9, adult (3) Edema, lower extremity: CODE(S): R60.0 - Localized edema PLAN: Continue wearing double layer Tubigrip to the area (4) Nonhealing nonsurgical wound: CODE(S): T14.8XXA - Other injury of unspecified body region, initial encounter
[2021-09-08 10:23] VITALS: BP 161/97; PULSE 76; RESP 16; TEMP 36
--- NOTE | 2021-09-08 12:11 | PN.PCM_ITS ---
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 States he gets on and off cellulitis of bilateral lower ankle area every 5 to 6 months and have to go on antibiotics. States he has never had an open like this before this is the worst. Denies trauma, states he sits a lot on his job. History of osteoarthritis and takes a lot of medications for that [id number] and meloxicam. His family doctor has been using Bactroban external ointment on the area to keep it clean. States he did cultures in the past and patient has been on clindamycin and also levofloxacin currently he finished those in June and has not been on anything since then. Progress of Wound: Right posterior ankle still open tendons are almost covered getting islands of new skin developing. Continues to improve. The hemoglobin A1c was within normal limits and his prealbumin was within normal limits. Patient does not skin sub. We will continue using Fibracol that we used for the last week seems to be working really well and he will follow up in a couple weeks Developing some hyper granulation and will hit it with some nitro sticks this week. Subjective Subjective Patient is happy with care Objective Data Objective Data Again some hyper granulation but the tendons are getting covered we will hit it with some nitro sticks and then continue the next day with his Fibracol seems to be healing well Vital Signs: Vital Signs Temp Pulse Resp BP 96.8 F L 76 16 161/97 H 09/08/21 10:23 09/08/21 10:23 09/08/21 10:23 09/08/21 10:23 Lab / Micro Data Attestation: I reviewed the patient's lab results. Result Diagrams: 08/18/21 11:04 Physical Exam Const alert and oriented x3 General Appearance: cooperative Nutritional Appearance: obese HEENT normocephalic Face and Sinus: normal facial exam Eyes PERRL General Eye: normal appearance of both eyes Neck full ROM Resp normal respiratory effort Effort and Inspection: able to speak in complete sentences Cardio regular rate and regular rhythm GI Auscultation: normoactive bowel sounds Palpation: soft and no hepatosplenomegaly Back/Spine Cervical Spine: cervical ROM normal Extremity General Extremity: edema; Negative for normal exam except as noted Skin Wounds: wounds noted Wound Narrative: Right posterior ankle open wound with a tendon visible Psych mental status grossly normal Appearance: grossly normal Activity / Motor Behavior: appropriate eye contact Speech: normal speech Mood & Affect: euthymic mood Debridement Note Debridement Note Wound debrided: Right upper heel wound or ulcer nonpressure Laterality: Right Type of Debridement: Excisional debridement Anesthesia Used: 5% Lidocaine Gel Depth: in the subcutaneous layer Percentage of wound debrided: 100 Instrument Used: 5mm curette and - (Nippers) Tissue Removed: Devitalized tissue and fibrin Severity: Fat Layer Exposed Amount of bleeding with debridement: Mild Bleeding Controlled with: Compression and gauze and Silver Nitrate Patient tolerated procedure: Patient tolerated procedure well Post-Debridement Measurements and Additional Note: Post-Debridement Measurements/Treatment - Nurse 1 - General Ulcer Assessment Start: 08/18/21 10:23 Freq: Status: Active Protocol: [email or web address].ALBIN Activity Type Activity Date Activity User E-Sign Co-Sign Detail Recorded Client Recorded Date Recorded By Document 08/18/21 10:24 AK [id number] 08/18/21 10:31 AK Document 08/25/21 10:36 KR [id number] 08/25/21 10:39 KR Document 09/08/21 10:23 ML [id number] 09/08/21 10:29 ML 08/18/21 08/25/21 09/08/21 10:24 10:36 10:23 - Today's Visit Information Type of service Follow-up Visit Follow-up Visit Follow-up Visit (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 ) ) ) Arrival Mode Ambulatory Ambulatory Ambulatory Transfer Assistance None Patient Identification Verified (Name & Yes Yes Yes ) Patient Requires Transmission-Based No No Precautions Safety Precautions NA NA Vital Signs Temperature (97.8 F-99.1 F) 96.9 F L 96.8 F L 96.8 F L Temperature Source Oral Temporal Temporal Pulse Rate (60-100) 73 82 76 Pulse Location Monitor Monitor Monitor Respiratory Rate (12-18) 16 Respiratory rate source Observation Blood Pressure (90/60-120/80) 153/91 H 148/68 H 161/97 H Blood Pressure Mean (mm Hg) 111 94 118 Source Monitor Monitor Monitor Position Sitting Sitting Blood Pressure Location Left Arm Left Arm History Since Last Visit- (Skip if this is Patient's initial visit) Have you changed medications since your No No No last visit? Any new allergies or adverse reactions No No No Had a fall/change in ADL's that may No No increase risk of falls Signs or symptoms of abuse and/or No No No neglect since last visit Have you been in the hospital since your No No No last visit? Has dressing in place as prescribed Yes Yes Yes Has compression in place as prescribed Yes Yes Yes Has offloadiing in place as prescribed N/A N/A N/A Experienced any changes in pain level or No No No management Left Footwear Regular Shoe Regular Shoe Regular Shoe Right Footwear Regular Shoe Regular Shoe Regular Shoe Pain Scale: 0-10 Numeric Is Patient Pain Free? Yes Yes WC - Nurse 1 - General Ulcer Measurement Start: 08/18/21 10:23 Freq: Status: Active Protocol: Activity Type Activity Date Activity User E-Sign Co-Sign Detail Recorded Client Recorded Date Recorded By Document 08/18/21 10:24 AK [id number] 08/18/21 10:31 AK Document 08/25/21 10:36 KR [id number] 08/25/21 10:39 KR Document 09/08/21 10:23 ML [id number] 09/08/21 10:29 ML 08/18/21 08/25/21 09/08/21 10:24 10:36 10:23 Wound Center Nurse 1 #1 Right Achilles -Combined with other wound No -Current Size (cm) - Length 3.8 3.5 4.5 -Current Size (cm) - Width 3.4 3.5 3 -Current Size (cm) - Depth 0.2 0.2 0.3 -Total Square Cm 12.92 12.25 13.5 -Photo Taken No -Epithelialization None Present Medium 34-66% -Tunneling No -Undermining/Tunneling No -Circular Undermining No -Change in Wound Grade/Stage No -Exudate Amt Medium Medium Medium -Exudate Type Serosanguineous Serosanguineous Serosanguineous -Wound Margin Distinct, Distinct, Distinct, Outline Outline Outline Attached Attached Attached -Granulation Amt Large (67-100%) Large (67-100%) Medium (34-66%) -Granulation Quality [place],Red Hyper- granulation -Slough/Fibrin No Yes -Necrosis Amt Medium (34-66%) Large (67-100%) Medium (34-66%) -Necrotic Tissue Type Adherent Slough Adherent Slough Adherent Slough -Structure Exposed N/A -Texture (Johanna-wound Skin Appearance) No Abnormality, Assessed, Assessed Assessed Scarring -Moisture (Johanna-wound Skin Appearance) No Abnormality, No Abnormality, Assessed Assessed Assessed -Color (Johanna-wound Skin Appearance) No Abnormality, No Abnormality, Assessed Assessed Assessed -Temperature (Johanna-wound Skin No Abnormality No Abnormality No Abnormality Appearance) (Pt Warm) (Pt Warm) (Pt Warm) -Tenderness on Palpation (Johanna-wound No No Skin Appearance) -Ulcer Cleansing Rinsed/ Rinsed/ Soap and Water Irrigated with Irrigated with Saline Saline -Foul Odor after Cleansing No No No -Anesthetic Used 5% Lidocaine 4% Lidocaine 4% Lidocaine Gel Solution Solution Lower Limb Edema Present No Right Calf (cm) 46.2 Right Ankle (cm) 25.5 WC - Nurse 2 - General Ulcer CM Notes Start: 08/18/21 10:23 Freq: Status: Active Protocol: Activity Type Activity Date Activity User E-Sign Co-Sign Detail Recorded Client Recorded Date Recorded By Document 08/18/21 10:36 MW [id number] 08/18/21 10:37 MW Document 08/25/21 10:43 MW [id number] 08/25/21 10:45 MW Document 09/08/21 10:41 MW [id number] 09/08/21 10:46 MW 08/18/21 08/25/21 09/08/21 10:36 10:43 10:41 Wound Center Nurse 2 #1 Right Achilles -Time 10:36 10:44 10:42 -Correct Patient Yes Yes Yes -Correct Side, Site, Position Yes Yes Yes -Correct Procedure Yes Yes Yes -Procedure Performed Yes Yes Yes -Type of Procedure Debridement Debridement Debridement -Clinical Debridement Subcutaneous Subcutaneous Subcutaneous -Tissue Removed Subcutaneous Subcutaneous Subcutaneous -Post Debridement (cm) - Length 4.0 4.0 3.8 -Post Debridement (cm) - Width 3.2 3.5 4.0 -Post Debridement (cm) - Depth 0.2 0.2 0.1 -Total Square (Post) (cm) 12.80 14.00 15.20 -Area of Debridement (cm) - Length 4.0 4.0 3.8 -Area of Debridement (cm) - Width 3.2 3.5 4.0 -Total Square (Area) (cm) 12.80 14.00 15.20 -Tunneling No No No -Undermining/Tunneling No No No -Circular Undermining No No No -Wound/Ulcer Outcome Not Healed Not Healed Not Healed -Ulcer Cleansing Rinsed/ Rinsed/ Rinsed/ Irrigated with Irrigated with Irrigated with Saline Saline Saline -Foul Odor after Cleansing No No No -Bioengineered Tissue No No No -Bleeding Controlled with Pressure Pressure Pressure -Offloading No No No -Treatment Response Procedure Procedure Procedure Tolerated Well Tolerated Well Tolerated Well -Debridement - Subq, 1st 20sq cm Yes Yes Yes Pain Scale: 0-10 Numeric Is Patient Pain Free? Yes Yes - Nurse 3 - General Ulcer D/C NN Start: 08/18/21 10:23 Freq: Status: Active Protocol: Activity Type Activity Date Activity User E-Sign Co-Sign Detail Recorded Client Recorded Date Recorded By Document 08/18/21 10:48 AK [id number] 08/18/21 10:49 AK Document 09/08/21 10:52 KR [id number] 09/08/21 10:53 KR 08/18/21 09/08/21 10:48 10:52 Wound Care Nurse 3 #1 Right Achilles -Ulcer Cleansing Rinsed/ Rinsed/ Irrigated with Irrigated with Saline Saline -Foul Odor after Cleansing No -Negative Pressure Wound Therapy N/A -Primary Dressing Applied Fibracol Plus Fibracol Plus 4x4 4x4,NonAdherent Contact Layer -Primary Dressing Covered/Secured with Dry Gauze, Dry Gauze & Secured with Roll Gauze, Tape Secured with Tape -Fibracol Plus 4x4 2 2 Pain Scale: 0-10 Numeric Is Patient Pain Free? 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 Apply Fibracol to wound base moistened cover with Adaptic gauze and dressing every day We will apply for skin substitute to cover tendon follow-up 2 weeks (2) Obesity: CODE(S): E66.9 - Obesity, unspecified QUALIFIERS: Obesity type: due to excess calories Obesity classification: adult class 3 (BMI >= 40) Serious obesity comorbidity presence: with serious comorbidity Body mass index: BMI 50.0-59.9 Qualified Code(s): E66.01 - Morbid (severe) obesity due to excess calories; Z68.43 - Body mass ind ex [BMI] 50.0-59.9, adult (3) Edema, lower extremity: CODE(S): R60.0 - Localized edema PLAN: Continue wearing double layer Tubigrip to the area (4) Nonhealing nonsurgical wound: CODE(S): T14.8XXA - Other injury of unspecified body region, initial encounter
== END 2021-09-12 23:59 ==
LOC: WC 10:15
PROVIDERS: PCP Family Medicine; Visit Provider Nurse Practitioner
DX: L97.312 Non-pressure chronic ulcer of right ankle with fat layer exposed (principal); R60.0 Localized edema; M19.90 Unspecified osteoarthritis, unspecified site; E66.01 Morbid (severe) obesity due to excess calories; Z68.43 Body mass index [BMI] 50.0-59.9, adult; Z79.1 Long term (current) use of non-steroidal anti-inflammatories (NSAID); Z79.899 Other long term (current) drug therapy
CPT/HCPCS: 11042; 36415; 83036; 84134; 85025

== ENCOUNTER 2021-09-29 10:15 | Outpatient (RCR) | payer OTHER, SELFPAY ==
[2021-09-13 00:28] VITALS: BP 161/97; PULSE 76; RESP 16; TEMP 36
[2021-09-15 10:42] VITALS: BP 161/98; PULSE 79; TEMP 36.1
--- NOTE | 2021-09-15 12:29 | PN.PCM_ITS ---
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 States he gets on and off cellulitis of bilateral lower ankle area every 5 to 6 months and have to go on antibiotics. States he has never had an open like this before this is the worst. Denies trauma, states he sits a lot on his job. History of osteoarthritis and takes a lot of medications for that [id number] and meloxicam. His family doctor has been using Bactroban external ointment on the area to keep it clean. States he did cultures in the past and patient has been on clindamycin and also levofloxacin currently he finished those in June and has not been on anything since then. Progress of Wound: The wound is approximately the same size states he is starting to fill and and less tendons are not showing at all anymore fat layers are being covered. Still working on getting skin to cover the whole top. Does develop a band around the edge that has to be debrided weekly. Subjective Subjective Patient states he has no pain at just the stiffness that it entails when not being used. Suggested he get up and walk and stretch his heel and move use movement. Objective Data Objective Data No sign of infection he does get a callus he band around the circumference of the wound that has to be removed weekly. The wound is not infected looks very clean. Does like to hyper granulated we did hit it again with nitro sticks to alleviate that. Patient tolerating Fibracol and that seems to be working well for him we will continue Vital Signs: Vital Signs Temp Pulse Resp BP 96.9 F L 79 16 161/98 H 09/15/21 10:42 09/15/21 10:42 09/13/21 00:28 09/15/21 10:42 Lab / Micro Data Attestation: I reviewed the patient's lab results. Physical Exam Const alert and oriented x3 General Appearance: cooperative Nutritional Appearance: obese HEENT normocephalic Face and Sinus: normal facial exam Eyes PERRL General Eye: normal appearance of both eyes Neck full ROM Resp normal respiratory effort Effort and Inspection: able to speak in complete sentences Cardio regular rate and regular rhythm GI Auscultation: normoactive bowel sounds Palpation: soft and no hepatosplenomegaly Back/Spine Cervical Spine: cervical ROM normal Extremity General Extremity: edema; Negative for normal exam except as noted Skin Wounds: wounds noted Wound Narrative: Right posterior ankle open wound with a tendon visible Psych mental status grossly normal Appearance: grossly normal Activity / Motor Behavior: appropriate eye contact Speech: normal speech Mood & Affect: euthymic mood Debridement Note Debridement Note Wound debrided: Right posterior ankle Laterality: Right Type of Debridement: Excisional debridement Anesthesia Used: 5% Lidocaine Gel Depth: in the subcutaneous layer Percentage of wound debrided: 100 Instrument Used: 5mm curette Tissue Removed: Callus devitalized tissue and fibrin Severity: Limited To Skin Breakdown Amount of bleeding with debridement: Mild Bleeding Controlled with: Pressure Patient tolerated procedure: Patient tolerated procedure well Post-Debridement Measurements and Additional Note: Post-Debridement Measuremen ts/Treatment TARIQ - Nurse 1 - General Ulcer Assessment Start: 09/15/21 10:42 Freq: Status: Active Protocol: MANSOOR Activity Type Activity Date Activity User E-Sign Co-Sign Detail Recorded Client Recorded Date Recorded By Document 09/15/21 10:42 TARIQ [id number] 09/15/21 10:45 TARIQ 09/15/21 10:42 WC - Today's Visit Information 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 Any new allergies or adverse reactions No Had a fall/change in ADL's that may No increase risk of falls Signs or symptoms of abuse and/or No neglect since last visit Have you been in the hospital since your No last visit? Has dressing in place as prescribed Yes Has compression in place as prescribed Yes Has offloadiing in place as prescribed N/A Experienced any changes in pain level or No management Left Footwear Regular Shoe Right Footwear Regular Shoe TARIQ - Nurse 1 - General Ulcer Measurement Start: 09/15/21 10:42 Freq: Status: Active Protocol: Activity Type Activity Date Activity User E-Sign Co-Sign Detail Recorded Client Recorded Date Recorded By Document 09/15/21 10:42 AK [id number] 09/15/21 10:45 AK 09/15/21 10:42 Wound Center Nurse 1 #1 Right Achilles -Combined with other wound No -Current Size (cm) - Length 4 -Current Size (cm) - Width 4.2 -Current Size (cm) - Depth 0.1 -Total Square Cm 16.8 -Photo Taken No -Epithelialization Medium 34-66% -Tunneling No -Undermining/Tunneling No -Circular Undermining No -Classification - Thickness Full Thickness with Exposed Support Structure -Change in Wound Grade/Stage No -Exudate Amt Small -Exudate Type Serosanguineous -Wound Margin Distinct, Outline Attached -Granulation Amt Large (67-100%) -Granulation Quality Red -Necrosis Amt Small (1-33%) -Necrotic Tissue Type Adherent Slough -Structure Exposed N/A -Texture (Johanna-wound Skin Appearance) No Abnormality, Assessed -Moisture (Johanna-wound Skin Appearance) No Abnormality, Assessed -Color (Johanna-wound Skin Appearance) No Abnormality, Assessed -Temperature (Johanna-wound Skin No Abnormality Appearance) (Pt Warm) -Tenderness on Palpation (Johanna-wound No Skin Appearance) -Ulcer Cleansing Rinsed/ Irrigated with Saline -Foul Odor after Cleansing No -Anesthetic Used 4% Lidocaine Solution,5% Lidocaine Gel Right Calf (cm) 44 Right Ankle (cm) 25 WC - Nurse 2 - General Ulcer CM Notes Start: 09/15/21 10:42 Freq: Status: Active Protocol: Activity Type Activity Date Activity User E-Sign Co-Sign Detail Recorded Client Recorded Date Recorded By Document 09/15/21 11:10 MW [id number] 09/15/21 11:11 MW 09/15/21 11:10 Wound Center Nurse 2 #1 Right Achilles -Time 11:11 -Correct Patient Yes -Correct Side, Site, Position Yes -Correct Procedure Yes -Procedure Performed Yes -Type of Procedure Debridement -Clinical Debridement Subcutaneous -Tissue Removed Subcutaneous -Post Debridement (cm) - Length 3.8 -Post Debridement (cm) - Width 4.0 -Post Debridement (cm) - Depth 0.1 -Total Square (Post) (cm) 15.20 -Area of Debridement (cm) - Length 3.8 -Area of Debridement (cm) - Width 4.0 -Total Square (Area) (cm) 15.20 -Tunneling No -Undermining/Tunneling No -Circular Undermining No -Wound/Ulcer Outcome Not Healed -Ulcer Cleansing Rinsed/ Irrigated with Saline -Foul Odor after Cleansing No -Bioengineered Tissue No -Bleeding Controlled with Pressure,Silver Nitrate -Offloading No -Treatment Response Procedure Tolerated Well -Debridement - Subq, 1st 20sq cm Yes Pain Scale: 0-10 Numeric Is Patient Pain Free? Yes - Nurse 3 - General Ulcer D/C NN Start: 09/15/21 10:42 Freq: Status: Active Protocol: Activity Type Activity Date Activity User E-Sign Co-Sign Detail Recorded Client Recorded Date Recorded By Document 09/15/21 11:18 [facility] [id number] 09/15/21 11:19 [facility] 09/15/21 11:18 Wound Care Nurse 3 #1 Right Achilles -Primary Dressing Covered/Secured with Dry Gauze, Secured with Tape Right -Other applied pts own double layer tubi Treatment Response Procedure Tolerated Well Pain Scale: 0-10 Numeric Is Patient Pain Free? 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 Apply Fibracol to wound base moistened cover with Adaptic gauze and dressing every day We will apply for skin substitute to cover tendon follow-up 2 weeks (2) Obesity: CODE(S): E66.9 - Obesity, unspecified QUALIFIERS: Body mass index: BMI 50.0-59.9 Obesity classification: adult class 3 (BMI >= 40) Obesity type: due to excess calories Serious obesity comorbidity presence: with serious comorbidity Qualified Code(s): E66.01 - Morbid (severe) obesity due to excess calories; Z68.43 - Body mass index [BMI] 50.0-59.9, adult (3) Edema, lower extremity: CODE(S): R60.0 - Localized edema PLAN: Continue wearing double layer Tubigrip to the area (4) Nonhealing nonsurgical wound: CODE(S): T14.8XXA - Other injury of unspecified body region, initial encounter
[2021-09-29 10:33] VITALS: BP 162/88; PULSE 86; RESP 20; TEMP 36.2
--- NOTE | 2021-09-29 12:34 | PCM.WC.PN ---
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 States he gets on and off cellulitis of bilateral lower ankle area every 5 to 6 months and have to go on antibiotics. States he has never had an open like this before this is the worst. Denies trauma, states he sits a lot on his job. History of osteoarthritis and takes a lot of medications for that [id number] and meloxicam. His family doctor has been using Bactroban external ointment on the area to keep it clean. States he did cultures in the past and patient has been on clindamycin and also levofloxacin currently he finished those in June and has not been on anything since then. Progress of Wound: The wound after not seen for 2 weeks looks very good still having some hyper granulation occurring. Skin around the edges starting to adhere and develop new skin over the wound. Measurements are smaller. Patient has concerns about his bills. He has a $7000 deductible. We discussed that he could come every 2 weeks for a while since he is healing well. But I have no idea how long it is going to take is to close this. We had opted for using other venues but they are too expensive for him. No sign of infection noted we did use some more nitro sticks to stop the overgrowth of skin. Subjective Subjective Patient is happy with his progress so far Objective Data Objective Data Wound is smaller in size starting at the base of the wound he said developing skin over the edges. Developed less of the callusing around the edge to strangulate the wound. The wound itself is beefy red with no sign of infection noted no odor no discharge. Vital Signs: Vital Signs Temp Pulse Resp BP 97.2 F L 86 20 H 162/88 H 09/29/21 10:33 09/29/21 10:33 09/29/21 10:33 09/29/21 10:33 Physical Exam Const oriented x3 General Appearance: cooperative Exam Limitations: no limitations HEENT normocephalic Head and Scalp: normal to inspection Face and Sinus: normal facial exam Nose: external nose normal General Ear: hearing grossly impaired External Ear: external ears normal Mouth: oral and palatal mucosa normal Eyes PERRL General Eye: normal appearance of both eyes Neck full ROM General: normal visual inspection Resp normal respiratory effort Effort and Inspection: able to speak in complete sentences Auscultation: clear to auscultation bilaterally Cardio regular rate and regular rhythm Palpation: normal PMI Rate: regular rate Rhythm: regular rhythm GI Auscultation: normoactive bowel sounds Palpation: soft and no hepatosplenomegaly external exam normal Back/Spine Cervical Spine: cervical ROM normal Thoracic Spine / Upper Back: normal to inspection Lumbar Spine / Lower Back: normal to inspection Extremity normal to inspection General Extremity: normal exam except as noted Skin no rashes or lesions noted Neuro oriented x3 Psych Appearance: grossly normal Speech: normal speech Thought Content: normal thought content Judgement: judgement good Debridement Note Debridement Note Wound debrided: Right posterior ankle Laterality: Right Type of Debridement: Excisional debridement Anesthesia Used: 5% Lidocaine Gel Depth: Down to and including healthy tissue Percentage of wound debrided: 100 Instrument Used: 7mm curette Tissue Removed: Fibrin and some devitalized tissue Severity: Fat Layer Exposed Amount of bleeding with debridement: Mild Bleeding Controlled with: Compression and gauze Patient tolerated procedure: Patient tolerated procedure well Post-Debridement Measurements and Additional Note: Post-Debridement Measurements/Treatment - Nurse 1 - General Ulcer Assessment Start: 09/15/21 10:42 Freq: Status: Active Protocol: MANSOOR Activity Type Activity Date Activity User E-Sign Co-Sign Detail Recorded Client Recorded Date Recorded By Document 09/15/21 10:42 NH [id number] 09/15/21 10:45 [place] Document 09/29/21 10:33 DL [id number] 09/29/21 10:37 DL 09/15/21 09/29/21 10:42 10:33 - Today's Visit Information Type of service Follow-up Visit Follow-up Visit (Physician/CONFERENCE PLANNING MANAGER (Physician/CONFERENCE PLANNING MANAGER ) ) Arrival Mode Ambulatory Ambulatory Transfer Assistance None Patient Identification Verified (Name & Yes Yes ) Patient Requires Transmission-Based No No Precautions Safety Precautions NA Vital Signs Temperature (97.8 F-99.1 F) 96.9 F L 97.2 F L Temperature Source Temporal Temporal Pulse Rate (60-100) 79 86 Pulse Location Monitor Monitor Respiratory Rate (12-18) 20 H Respiratory rate source Observation Blood Pressure (90/60-120/80) 161/98 H 162/88 H Blood Pressure Mean (mm Hg) 119 112 Source Monitor Monitor History Since Last Visit- (Skip if this is Patient's initial visit) Have you changed medications since your No No last visit? Any new allergies or adverse reactions No No Had a fall/change in ADL's that may No No increase risk of falls Signs or symptoms of abuse and/or No No neglect since last visit Have you been in the hospital since your No No last visit? Has dressing in place as prescribed Yes Yes Has compression in place as prescribed Yes Yes Has offloadiing in place as prescribed N/A Yes Experienced any changes in pain level or No No management Left Footwear Regular Shoe Right Footwear Regular Shoe Pain Scale: 0-10 Numeric Is Patient Pain Free? Yes WC - Nurse 1 - General Ulcer Measurement Start: 09/15/21 10:42 Freq: Status: Active Protocol: Activity Type Activity Date Activity User E-Sign Co-Sign Detail Recorded Client Recorded Date Recorded By Document 09/15/21 10:42 AK [id number] 09/15/21 10:45 [place] Document 09/29/21 10:33 DL [id number] 09/29/21 10:37 DL 09/15/21 09/29/21 10:42 10:33 Wound Center Nurse 1 #1 Right Achilles -Combined with other wound No -Current Size (cm) - Length 4 3 -Current Size (cm) - Width 4.2 3.4 -Current Size (cm) - Depth 0.1 0.1 -Total Square Cm 16.8 10.2 -Photo Taken No No -Epithelialization Medium 34-66% -Tunneling No -Undermining/Tunneling No -Circular Undermining No -Classification - Thickness Full Thickness with Exposed Support Structure -Change in Wound Grade/Stage No -Exudate Amt Small Medium -Exudate Type Serosanguineous Serosanguineous -Wound Margin Distinct, Distinct, Outline Outline Attached Attached -Granulation Amt Large (67-100%) Large (67-100%) -Granulation Quality Red Hyper- granulation,Red -Necrosis Amt Small (1-33%) Small (1-33%) -Necrotic Tissue Type Adherent Slough Adherent Slough -Structure Exposed N/A N/A -Texture (Johanna-wound Skin Appearance) No Abnormality, Scarring Assessed -Moisture (Johanna-wound Skin Appearance) No Abnormality, No Abnormality Assessed -Color (Johanna-wound Skin Appearance) No Abnormality, No Abnormality Assessed -Temperature (Johanna-wound Skin No Abnormality No Abnormality Appearance) (Pt Warm) (Pt Warm) -Tenderness on Palpation (Johanna-wound No No Skin Appearance) -Ulcer Cleansing Rinsed/ Soap and Water Irrigated with Saline -Foul Odor after Cleansing No No -Anesthetic Used 4% Lidocaine 5% Lidocaine Solution,5% Gel Lidocaine Gel Right Calf (cm) 44 45 Right Ankle (cm) 25 22.4 - Nurse 2 - General Ulcer CM Notes Start: 09/15/21 10:42 Freq: Status: Active Protocol: Activity Type Activity Date Activity User E-Sign Co-Sign Detail Recorded Client Recorded Date Recorded By Document 09/15/21 11:10 MW [id number] 09/15/21 11:11 MW Document 09/29/21 10:43 MW [id number] 09/29/21 10:46 MW 09/15/21 09/29/21 11:10 10:43 Wound Center Nurse 2 #1 Right Achilles -Time 11:11 10:43 -Correct Patient Yes Yes -Correct Side, Site, Position Yes Yes -Correct Procedure Yes Yes -Procedure Performed Yes Yes -Type of Procedure Debridement Debridement -Clinical Debridement Subcutaneous Subcutaneous -Tissue Removed Subcutaneous Subcutaneous -Post Debridement (cm) - Length 3.8 3.0 -Post Debridement (cm) - Width 4.0 3.0 -Post Debridement (cm) - Depth 0.1 0.1 -Total Square (Post) (cm) 15.20 9.00 -Area of Debridement (cm) - Length 3.8 3.0 -Area of Debridement (cm) - Width 4.0 3.0 -Total Square (Area) (cm) 15.20 9.00 -Tunneling No No -Undermining/Tunneling No No -Circular Undermining No No -Wound/Ulcer Outcome Not Healed Not Healed -Ulcer Cleansing Rinsed/ Rinsed/ Irrigated with Irrigated with Saline Saline -Foul Odor after Cleansing No No -Bioengineered Tissue No No -Bleeding Controlled with Pressure,Silver Pressure,Silver Nitrate Nitrate -Offloading No No -Treatment Response Procedure Procedure Tolerated Well Tolerated Well -Debridement - Subq, 1st 20sq cm Yes Yes Pain Scale: 0-10 Numeric Is Patient Pain Free? Yes Yes - Nurse 3 - General Ulcer D/C NN Start: 09/15/21 10:42 Freq: Status: Active Protocol: Activity Type Activity Date Activity User E-Sign Co-Sign Detail Recorded Client Recorded Date Recorded By Document 09/15/21 11:18 [facility] [id number] 09/15/21 11:19 [facility] Document 09/29/21 10:55 [facility] [id number] 09/29/21 10:56 [facility] 09/15/21 09/29/21 11:18 10:55 Wound Care Nurse 3 #1 Right Achilles -Primary Dressing Applied Fibracol Plus 4x4,Other -Other Dressing DRY DRESSING; WILL RESUME FIBRACOL TOMORROW -Primary Dressing Covered/Secured with Dry Gauze, Dry Gauze & Secured with Roll Gauze, Tape Secured with Tape,Other -Other Covering ABD; DRSG PER [place] DIRECTOR DATA ARCHITECTURE -Fibracol Plus 4x4 2 Right -Tubular Bandage Double Layer -Size of Tubigrip Used Size F -Size F ($) 1 -Other applied pts own double layer tubi Treatment Response Procedure Procedure Tolerated Well Tolerated Well Pain Scale: 0-10 Numeric Is Patient Pain Free? 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 Apply Fibracol to wound base moistened cover with Adaptic gauze and dressing every day We will apply for skin substitute to cover tendon follow-up 2 weeks (2) Obesity: CODE(S): E66.9 - Obesity, unspecified QUALIFIERS: Body mass index: BMI 50.0-59.9 Obesity classification: adult class 3 (BMI >= 40) Obesity type: due to excess calories Serious obesity comorbidity presence: with serious comorbidity Qualified Code(s): E66.01 - Morbid (severe) obesity due to excess calories; Z68.43 - Body mass index [BMI] 50.0-59.9, adult (3) Edema, lower extremity: CODE(S): R60.0 - Localized edema PLAN: Continue wearing double layer Tubigrip apply Juan wrap over top (4) Nonhealing nonsurgical wound: CODE(S): T14.8XXA - Other injury of unspecified body region, initial encounter
== END 2021-10-12 23:59 ==
LOC: WC 10:15
PROVIDERS: PCP Family Medicine; Visit Provider Nurse Practitioner
DX: L97.312 Non-pressure chronic ulcer of right ankle with fat layer exposed (principal); R60.0 Localized edema; M19.90 Unspecified osteoarthritis, unspecified site; E66.01 Morbid (severe) obesity due to excess calories; Z68.43 Body mass index [BMI] 50.0-59.9, adult; Z79.899 Other long term (current) drug therapy
CPT/HCPCS: 11042